=== PATIENT | female | born 1950 | race African-American/Black ===

== ENCOUNTER → 2017-01-21 | Outpatient (CLI) | payer OTHER, MEDICAID ==
[2012-08-03 21:09] VITALS: BP 159/82
[2017-01-21 12:13] LABS: BASOPHILS % (AUTO) 0.5 % (0.2-1.0); EOSINOPHILS # (AUTO) 0.1 x10^3/uL (0.0-0.2); EOSINOPHILS % (AUTO) 2.1 % (0.9-2.9); HEMATOCRIT 37.2 % (36.0-47.0); HEMOGLOBIN 12.3 g/dL (12.0-16.0); LYMPHOCYTES # (AUTO) 1.8 X10^3/uL (1.3-2.9); LYMPHOCYTES % (AUTO) 41.8 % (21.0-51.0); MEAN CORPUSCULAR HEMOGLOBIN 27.4 pg (27.0-34.0); MEAN CORPUSCULAR HGB CONC 33.1 g/dL (33.0-35.0); MEAN CORPUSCULAR VOLUME 82.8 fL (80.0-100.0); MEAN PLATELET VOLUME 7.5 fL (7.4-11.0); MONOCYTES # (AUTO) 0.3 x10^3/uL (0.3-0.8); MONOCYTES % (AUTO) 8.1 % (0.0-13.0); NEUTROPHILS % (AUTO) 47.5 % (42.0-75.0); PLATELET COUNT 321 X10^3/uL (150.0-450.0); RED CELL DISTRIBUTION WIDTH 14.1 % (11.6-16.5); WHITE BLOOD COUNT 4.2 X10^3/uL (3.6-10.0)
[2017-01-21 12:20] LABS: ALANINE AMINOTRANSFERASE 22 Units/L (12-78); ALBUMIN 3.9 g/dL (3.4-5.0); ALKALINE PHOSPHATASE 106 Units/L (46-116); ASPARTATE AMINO TRANSFERASE 22 Units/L (15-37); BLOOD UREA NITROGEN 16 mg/dL (7-18); CARBON DIOXIDE 32.4 mmol/L (21-32); CHLORIDE 107 mmol/L (98-107); CHOL/HDL RATIO 4.2 (0.0-5.0); CHOLESTEROL 250 mg/dL (0-200); CREATININE 0.99 mg/dL (0.55-1.02); GLUCOSE 91 mg/dL (65-99); HDL CHOLESTEROL 59 mg/dL (40-60); SODIUM 142 mmol/L (136-145); TOTAL PROTEIN 7.6 g/dL (6.4-8.2); TRIGLYCERIDES 54 mg/dL (0-150); eGFR BLACK RACES > 60 (>60); eGFR NON BLACK RACES 59 (>60)
[2017-01-21 12:54] LABS: ERYTHROCYTE SEDIMENTATION RATE 21 MM/HOUR (0-20)
--- NOTE | 2017-01-21 12:59 | RAD ---
HISTORY: Bilateral hip pain, left-sided back pain Study: Left hip two views, AP pelvis Comparison: None Findings: The pelvic bones and SI joints are intact. The hip joints are bilaterally intact. Mild degenerative joint space narrowing is present bilaterally. No joint erosions are noted. No fracture, lytic, or bl astic lesion is identified. IMPRESSION: Mild degenerative joint disease in the hips bilaterally Reported By:
--- NOTE | 2017-01-21 13:01 | RAD ---
HISTORY: Left-sided low back pain, hip pain Study: Lumbar spine five view Comparison: None Findings: The alignment is normal with the exception of minimal anterolisthesis L4 on L5 secondary to facet de generative joint disease. The vertebral bodies are of average height. The lumbar disc levels are pre served. There is degenerative disk disease at T12-L1. Facet degenerative joint disease is present bi laterally L3-4 through S1. No spondylolysis is identified. The SI joints are normal. The pedicles ar e intact. IMPRESSION: Degenerative disc disease T12-L1 Relatively severe facet degenerative joint disease bilaterally L3-4 through L5-S1 Reported By:
[2017-01-25 06:13] LABS: DEHYDROEPIANDROSTERONE SULFATE 48 ug/dL (13-130)
[2017-01-28 06:18] LABS: ESTROGENS TOTAL 39.2 pg/mL
== END | disposition home or self-care (01) | DRG 305 ==
LOC: LAB 11:34
PROVIDERS: ATTEND Nurse Practitioner Family
DX: I10 Essential (primary) hypertension (principal); E78.4 Other hyperlipidemia; M15.0 Primary generalized (osteo)arthritis; R23.2 Flushing; M54.5 Low back pain; M25.551 Pain in right hip; M25.552 Pain in left hip; M47.896 Other spondylosis, lumbar region; M47.897 Other spondylosis, lumbosacral region; M51.35 Other intervertebral disc degeneration, thoracolumbar region
CPT/HCPCS: 36415; 72110; 73521; 80053; 80061; 82627; 82670; 82671; 84144; 84270; 84402; 84403; 85025; 85652; 86140

== ENCOUNTER → 2017-02-20 | Outpatient (CLI) | payer OTHER, MEDICAID ==
[2012-08-03 21:09] VITALS: BP 159/82
--- NOTE | 2017-02-25 16:08 | MG ---
HISTORY: SCREENING Comparison: June 10, 2014 and June 16, 2015 FINDINGS: Bilateral CC and MLO projections of the right and left breast were obtained. Scattered fibroglandula r tissue is seen to be present without significant interval change. No suspicious architectural dist ortion, mass or clustered microcalcifications can be observed to suggest malignancy. No skin thicken ing or nipple retraction is appreciated. No pathological lymphadenopathy can be identified. Benign- appearing calcifications are noted within the right and left breast. A biopsy clip or dystrophic calc ification is noted within a stable upper outer quadrant left breast nodule. IMPRESSION: NO RADIOGRAPHIC EVIDENCE OF MALIGNANCY. ACR CATEGORY 2 - benign findings. FOLLOW-UP EXAM 1 YEAR. Diagnostic CAD was utilized and reviewed. * 0 (ZERO) - ASSESSMENT INCOMPLETE; ADDITIONAL IMAGING IS NEEDED. * 1/1 (ONE) - NEGATIVE. * 2/II (TWO) - BENIGN FINDINGS. * 3/III (THREE) - PROBABLY BENIGN FINDING; SHORT INTERVAL FOLLOW-UP SUGGESTED. * 4/IV (FOUR) - SUSPICIOUS ABNORMALITY; BIOPSY SHOULD BE CONSIDERED. * 5/V (FIVE) - HIGHLY SUSPICIOUS OF MALIGNANCY; BIOPSY SHOULD BE PERFORMED. A NEGATIVE X-RAY REPORT SHOULD NOT DELAY BIOPSY IF A DOMINANT OR CLINICALLY SUSPICIOUS MASS IS PRESENT; 4 TO 8 PERCENT OF CANCERS ARE NOT IDENTIFIED BY X-RAY. A NEGA TIVE REPORT MAY REINFORCE THE CLINICAL IMPRESSION. ADENOSIS AND DENSE BREASTS MAY OBSCURE AN UNDERLY ING NEOPLASM. Reported By:
== END ==
LOC: RAD 15:29
PROVIDERS: ATTEND Nurse Practitioner Family
DX: Z12.31 Encounter for screening mammogram for malignant neoplasm of breast (principal)
CPT/HCPCS: 77067

== ENCOUNTER → 2017-08-29 | Outpatient (CLI) | payer OTHER, MEDICAID ==
[2012-08-03 21:09] VITALS: BP 159/82
[2017-08-29 11:36] LABS: BASOPHILS # (AUTO) 0.1 X10^3/uL (0.0-0.1); BASOPHILS % (AUTO) 1.2 % (0.2-1.0); EOSINOPHILS # (AUTO) 0.1 x10^3/uL (0.0-0.2); HEMOGLOBIN 12.1 g/dL (12.0-16.0); LYMPHOCYTES # (AUTO) 1.9 X10^3/uL (1.3-2.9); LYMPHOCYTES % (AUTO) 36.6 % (21.0-51.0); MEAN CORPUSCULAR HEMOGLOBIN 26.8 pg (27.0-34.0); MEAN CORPUSCULAR HGB CONC 32.8 g/dL (33.0-35.0); MEAN CORPUSCULAR VOLUME 81.5 fL (80.0-100.0); MEAN PLATELET VOLUME 7.4 fL (7.4-11.0); MONOCYTES # (AUTO) 0.4 x10^3/uL (0.3-0.8); MONOCYTES % (AUTO) 7.6 % (0.0-13.0); NEUTROPHILS # (AUTO) 2.8 x10^3/uL (2.2-4.8); NEUTROPHILS % (AUTO) 53.6 % (42.0-75.0); PLATELET COUNT 322 X10^3/uL (150.0-450.0); RED BLOOD COUNT 4.54 X10^6/uL (3.5-5.4); RED CELL DISTRIBUTION WIDTH 14.6 % (11.6-16.5); WHITE BLOOD COUNT 5.2 X10^3/uL (3.6-10.0)
[2017-08-29 11:47] LABS: ALANINE AMINOTRANSFERASE 23 Units/L (12-78); ALBUMIN 3.6 g/dL (3.4-5.0); ALKALINE PHOSPHATASE 112 Units/L (46-116); ASPARTATE AMINO TRANSFERASE 19 Units/L (15-37); BLOOD UREA NITROGEN 20 mg/dL (7-18); CALCIUM 8.8 mg/dL (8.5-10.1); CHLORIDE 104 mmol/L (98-107); CHOL/HDL RATIO 3.8 (0.0-5.0); CHOLESTEROL 237 mg/dL (0-200); CREATININE 0.96 mg/dL (0.55-1.02); HDL CHOLESTEROL 63 mg/dL (40-60); SODIUM 141 mmol/L (136-145); TOTAL PROTEIN 7.6 g/dL (6.4-8.2); TRIGLYCERIDES 42 mg/dL (0-150); eGFR BLACK RACES > 60 (>60); eGFR NON BLACK RACES > 60 (>60)
[2017-08-29 12:02] LABS: IRON 66 ug/dL (50-175); TOTAL IRON BINDING CAPACITY 318 ug/dL (250-450)
== END ==
LOC: LAB 10:59
PROVIDERS: ATTEND Nurse Practitioner Family
DX: E78.4 Other hyperlipidemia (principal); D53.8 Other specified nutritional anemias; E56.8 Deficiency of other vitamins; I10 Essential (primary) hypertension
CPT/HCPCS: 36415; 80053; 80061; 82306; 82728; 83540; 83550; 85025

== ENCOUNTER → 2017-10-29 | Outpatient (CLI) | payer OTHER, MEDICAID ==
[2012-08-03 21:09] VITALS: BP 159/82
[2017-10-29 13:57] LABS: BASOPHILS # (AUTO) 0.1 X10^3/uL (0.0-0.1); BASOPHILS % (AUTO) 1.6 % (0.2-1.0); EOSINOPHILS % (AUTO) 0.8 % (0.9-2.9); HEMATOCRIT 35.2 % (36.0-47.0); HEMOGLOBIN 11.8 g/dL (12.0-16.0); LYMPHOCYTES # (AUTO) 2.1 X10^3/uL (1.3-2.9); LYMPHOCYTES % (AUTO) 33.5 % (21.0-51.0); MEAN CORPUSCULAR HEMOGLOBIN 27.2 pg (27.0-34.0); MEAN CORPUSCULAR HGB CONC 33.4 g/dL (33.0-35.0); MEAN CORPUSCULAR VOLUME 81.3 fL (80.0-100.0); MONOCYTES # (AUTO) 0.4 x10^3/uL (0.3-0.8); NEUTROPHILS # (AUTO) 3.6 x10^3/uL (2.2-4.8); NEUTROPHILS % (AUTO) 57.1 % (42.0-75.0); PLATELET COUNT 319 X10^3/uL (150.0-450.0); RED BLOOD COUNT 4.32 X10^6/uL (3.5-5.4); RED CELL DISTRIBUTION WIDTH 15.4 % (11.6-16.5); WHITE BLOOD COUNT 6.3 X10^3/uL (3.6-10.0)
[2017-10-29 14:03] LABS: ALANINE AMINOTRANSFERASE 19 Units/L (12-78); ALBUMIN 3.7 g/dL (3.4-5.0); ALKALINE PHOSPHATASE 127 Units/L (46-116); ASPARTATE AMINO TRANSFERASE 18 Units/L (15-37); BLOOD UREA NITROGEN 17 mg/dL (7-18); CALCIUM 8.8 mg/dL (8.5-10.1); CARBON DIOXIDE 32.9 mmol/L (21-32); CHLORIDE 105 mmol/L (98-107); CREATININE 1.07 mg/dL (0.55-1.02); SODIUM 142 mmol/L (136-145); TOTAL PROTEIN 7.8 g/dL (6.4-8.2); eGFR BLACK RACES > 60 (>60); eGFR NON BLACK RACES 54 (>60)
--- NOTE | 2017-10-29 14:42 | MRI ---
HISTORY: Low back pain, intervertebral disc disease Study: MRI lumbar spine without contrast Comparison: Lumbar radiographs performed on 01/21/2017 and MRI performed on 10/13/2013 Technique: Multiplanar multi-sequence MRI of the lumbar spine was obtained. Sagittal T1, sagittal T2 , and stir weighted images, axial T1, and axial T2 images were obtained. Findings: Imaging of the lumbar spine demonstrates minimal anterolisthesis of L4 on L5, likely secondary to adv anced facet arthropathy at this level. Vertebral body height is maintained throughout. No acute or ch ronic compression fracture is visualized. There is no suspicious bone marrow edema. Multilevel mild d egenerative endplate changes are visualized anteriorly within the lumbar spine. The conus terminates at the L1-L2 level. Evaluation of the pre and paravertebral soft tissues is unremarkable. Incidental note is made of small bilateral renal cysts. T12 -- L1: At 8 T12-L1 level there is facet hypertrophy without significant canal stenosis or neurofo raminal compromise. L1 -- L2: At the L1-L2 level there is facet hypertrophy without significant canal stenosis or neurofo raminal compromise. L2 -- L3: At the L2-L3 level there is facet hypertrophy and minimal lateral recess disc ridging, resu lting in mild bilateral neuroforaminal compromise but no significant canal stenosis. L3 -- L4: At the L3-L4 level there is advanced facet hypertrophy and ligamentum flavum thickening as well as very mild lateral recess disc ridging, resulting in moderate neuroforaminal compromise on the left and [id number]-ga-wqnxtkci neuroforaminal compromise on the right as well as bhau-pq-yexnarxp canal s tenosis. L4 -- L5: At the L4-L5 level there is mild broad-based disc ridging and advanced facet arthropathy wh ich, along with mild listhesis at this level, are resulting in mild canal stenosis as well as mild bi lateral neuroforaminal compromise. L5 -- S1: At the L5-S1 level there is very mild disc ridging as well as advanced facet arthropathy, r esulting in mild neuroforaminal compromise on the left but no significant canal stenosis. IMPRESSION: 1. Multilevel degenerative disc disease and multilevel advanced facet arthropathy as detailed above, most significant at the L3-L4 level, there is moderate left and [id number]-cw-[id number] right neuroforaminal compromise as well as lrwq-[id number] canal stenosis. Reported By:
--- NOTE | 2017-10-29 15:13 | RAD ---
HISTORY: Right knee pain. Study: Two views of the right knee. Comparison: Right knee series dated June 08, 2015. Findings: No evidence for acute cortical disruption or dislocation. Moderate tricompartmental osteoarthritis. No significant effusion. IMPRESSION: Chronic findings as above. Reported By:
--- NOTE | 2017-10-29 15:14 | RAD ---
HISTORY: Left knee pain Study: Left knee: 2 views Comparison: 06/08/2015 Findings: Moderately severe joint space narrowing is noted in the medial compartment with moderate to moderatel y severe spurring noted medially and mild laterally. Moderate spiking of the tibial spines is noted. Moderately severe patellofemoral joint degeneration is present. No acute bony or joint abnormaliti es are identified. IMPRESSION: 1. Degenerative change in the left knee as described above. 2. No significant change is noted when compared to the prior examination. Reported By:
--- NOTE | 2017-10-29 15:15 | RAD ---
HISTORY: Low back pain and cramping Study: 3 views of the lumbar spine Comparison: None. Findings: Normal alignment without subluxation or listhesis. Multilevel degenerative disc disease with severe facet arthropathy. Grade 1 anterolisthesis of L4 on L5. Vertebral body heights are normal. Sacroilia c joints are unremarkable. No evidence for acute fracture can be identified. IMPRESSION: 1. No acute abnormality of the lumbar spine. 2. Severe degenerative disease as above. Reported By:
== END | disposition home or self-care (01) | DRG 552 ==
LOC: RAD 13:11
PROVIDERS: ATTEND Nurse Practitioner Family
DX: M54.5 Low back pain (principal); M25.561 Pain in right knee; M25.562 Pain in left knee; R25.2 Cramp and spasm; M51.36 Other intervertebral disc degeneration, lumbar region
CPT/HCPCS: 36415; 72100; 72148; 73560; 80053; 83735; 85025